=== PATIENT | female | born 1975 | race Caucasian/White ===

== ENCOUNTER → 2022-09-08 | Outpatient (CLI) | payer BC ==
[2022-09-08 13:06] LABS: BASOPHILS # (AUTO) 0.1 10^3/uL (0.0-0.1); BASOPHILS % (AUTO) 1 % (0-10); EOSINOPHILS # (AUTO) 0.1 10^3/uL (0.0-0.3); EOSINOPHILS % (AUTO) 3 % (0-10); HEMATOCRIT 38 % (35-52); LYMPHOCYTES # (AUTO) 1.2 10^3/uL (1.0-4.0); LYMPHOCYTES % (AUTO) 29 % (12-44); MEAN CORPUSCULAR HEMOGLOBIN 32 pg (25-34); MEAN CORPUSCULAR HGB CONC 34 g/dL (32-36); MEAN CORPUSCULAR VOLUME 93 fL (80-99); MEAN PLATELET VOLUME 10.5 fL (9.0-12.2); MONOCYTES # (AUTO) 0.3 10^3/uL (0.0-1.0); MONOCYTES % (AUTO) 8 % (0-12); NEUTROPHILS # (AUTO) 2.4 10^3/uL (1.8-7.8); NEUTROPHILS % (AUTO) 59 % (42-75); PLATELET COUNT 215 10^3/uL (130-400); WHITE BLOOD COUNT 4.1 10^3/uL (4.3-11.0)
[2022-09-08 13:18] LABS: ALBUMIN 4.4 GM/DL (3.2-4.5); POTASSIUM 4.2 MMOL/L (3.6-5.0)
[2022-09-08 13:19] LABS: CALCIUM 9.4 MG/DL (8.5-10.1)
[2022-09-08 13:24] LABS: CREATININE SERUM 1.01 MG/DL (0.60-1.30)
[2022-09-08 13:28] LABS: URINE CREATININE FOR RATIO 99 MG/DL (30-125)
[2022-09-08 13:29] LABS: URINE PROTEIN FOR RATIO ONLY < 6 MG/DL (6-12)
[2022-09-08 13:49] LABS: FREE T4 (FREE THYROXINE) 1.02 NG/DL (0.70-1.48)
== END ==
LOC: LAB 12:46
PROVIDERS: ATTEND Nurse Practitioner Family
DX: Z13.220 Encounter for screening for lipoid disorders (principal); D50.9 Iron deficiency anemia, unspecified; N18.30 Chronic kidney disease, stage 3 unspecified
CPT/HCPCS: 36415; 80061; 80069; 82570; 82607; 82728; 82746; 83540; 83550; 83735; 84156; 84439; 84443; 85025; 86663; 86664; 86665

== ENCOUNTER → 2022-10-30 | Outpatient (CLI) | payer BC ==
[2022-10-30 10:45] LABS: BASOPHILS # (AUTO) 0.1 10^3/uL (0.0-0.1); BASOPHILS % (AUTO) 1 % (0-10); EOSINOPHILS # (AUTO) 0.3 10^3/uL (0.0-0.3); EOSINOPHILS % (AUTO) 4 % (0-10); HEMATOCRIT 40 % (35-52); HEMOGLOBIN 13.5 g/dL (11.5-16.0); LYMPHOCYTES # (AUTO) 1.8 10^3/uL (1.0-4.0); LYMPHOCYTES % (AUTO) 22 % (12-44); MEAN CORPUSCULAR HEMOGLOBIN 32 pg (25-34); MEAN CORPUSCULAR HGB CONC 33 g/dL (32-36); MEAN CORPUSCULAR VOLUME 95 fL (80-99); MEAN PLATELET VOLUME 10.5 fL (9.0-12.2); MONOCYTES # (AUTO) 0.5 10^3/uL (0.0-1.0); MONOCYTES % (AUTO) 6 % (0-12); NEUTROPHILS # (AUTO) 5.3 10^3/uL (1.8-7.8); NEUTROPHILS % (AUTO) 67 % (42-75); PLATELET COUNT 261 10^3/uL (130-400); WHITE BLOOD COUNT 7.9 10^3/uL (4.3-11.0)
[2022-10-30 10:49] LABS: BILIRUBIN,URINE NEGATIVE (NEGATIVE); CLARITY,URINE CLEAR; COLOR,URINE YELLOW; GLUCOSE, URINE (UA) NEGATIVE (NEGATIVE); KETONES,URINE NEGATIVE (NEGATIVE); LEUKOCYTE ESTERASE ,URINE NEGATIVE (NEGATIVE); NITRITE,URINE NEGATIVE (NEGATIVE); PH,URINE 5.5 (5-9); PROTEIN,URINE NEGATIVE (NEGATIVE)
[2022-10-30 10:58] LABS: BACTERIA,URINE NEGATIVE /HPF; WBC,URINE RARE /HPF
[2022-10-30 11:08] LABS: URINE CREATININE FOR RATIO 36 MG/DL (30-125)
[2022-10-30 11:09] LABS: URINE PROTEIN FOR RATIO ONLY < 6 MG/DL (6-12)
[2022-10-30 11:13] LABS: ALBUMIN 4.4 GM/DL (3.2-4.5); CALCIUM 9.6 MG/DL (8.5-10.1); CREATININE SERUM 1.14 MG/DL (0.60-1.30); PHOSPHORUS 3.4 MG/DL (2.3-4.7); POTASSIUM 3.2 MMOL/L (3.6-5.0)
== END ==
LOC: LAB 10:08
PROVIDERS: ATTEND Internal Medicine Nephrology
DX: N18.31 Chronic kidney disease, stage 3a (principal); T39.395A Adverse effect of other nonsteroidal anti-inflammatory drugs [NSAID], initial encounter; R80.9 Proteinuria, unspecified; E67.3 Hypervitaminosis D
CPT/HCPCS: 36415; 80069; 81000; 82306; 82570; 83735; 84156; 85025

== ENCOUNTER 2022-11-12 14:55 | Emergency (ER) | payer BC ==
[~2022-11-12] VITALS: Ht 165.1 cm; Wt 68.0 kg
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
[2022-11-12] MEDS ORDERED: ALPRAZolam 0.25 MG (XANAX) TAB PO ONE (16:00)
[2022-11-12 17:21] LABS: AMPHETAMINE SCREEN, URINE NEGATIVE (NEGATIVE); BARBITURATE SCREEN URINE NEGATIVE (NEGATIVE); BENZODIAZEPINES SCREEN URINE NEGATIVE (NEGATIVE); CANNABINOID SCREEN, URINE NEGATIVE (NEGATIVE); COCAINE SCREEN URINE NEGATIVE (NEGATIVE); METHADONE STAT NEGATIVE (NEGATIVE); OPIATE SCREEN URINE NEGATIVE (NEGATIVE); OXYCODONE STAT NEGATIVE (NEGATIVE); PROPOXYPHENE STAT NEGATIVE (NEGATIVE); TRICYCLIC ANTIDEPRESSANTS SCRE NEGATIVE (NEGATIVE)
[2022-11-12 17:48] LABS: BUN/CREATININE RATIO 17; CALCIUM 9.9 MG/DL (8.5-10.1); CARBON DIOXIDE 23 MMOL/L (21-32); CHLORIDE 107 MMOL/L (98-107); CREATININE SERUM 0.96 MG/DL (0.60-1.30); GFR ESTIMATED 74; GLUCOSE 88 MG/DL (70-105); POTASSIUM 4.1 MMOL/L (3.6-5.0); SODIUM 141 MMOL/L (135-145)
[2022-11-12 18:29] VITALS: BP 138/76
== END 2022-11-12 18:32 | disposition home or self-care (01) ==
LOC: EDUNIT# 14:55 → ER 14:56
DX: F41.9 Anxiety disorder, unspecified (principal)
CPT/HCPCS: 80048; 80306; 83735; 84703; 99283; G0480; 36415; 80320

== ENCOUNTER 2022-12-30 01:58 | Emergency (ER) | payer BC ==
[2022-12-30 02:12] LABS: BASOPHILS # (AUTO) 0.1 10^3/uL (0.0-0.1); BASOPHILS % (AUTO) 1 % (0-10); EOSINOPHILS # (AUTO) 0.1 10^3/uL (0.0-0.3); EOSINOPHILS % (AUTO) 1 % (0-10); HEMATOCRIT 36 % (35-52); HEMOGLOBIN 12.2 g/dL (11.5-16.0); LYMPHOCYTES # (AUTO) 2.4 10^3/uL (1.0-4.0); LYMPHOCYTES % (AUTO) 22 % (12-44); MEAN CORPUSCULAR HEMOGLOBIN 32 pg (25-34); MEAN CORPUSCULAR HGB CONC 34 g/dL (32-36); MEAN CORPUSCULAR VOLUME 94 fL (80-99); MEAN PLATELET VOLUME 10.3 fL (9.0-12.2); MONOCYTES # (AUTO) 0.8 10^3/uL (0.0-1.0); MONOCYTES % (AUTO) 7 % (0-12); NEUTROPHILS # (AUTO) 7.3 10^3/uL (1.8-7.8); NEUTROPHILS % (AUTO) 69 % (42-75); PLATELET COUNT 257 10^3/uL (130-400); WHITE BLOOD COUNT 10.7 10^3/uL (4.3-11.0)
[2022-12-30] MEDS ORDERED: ASPIRIN 81 MG CHEW (CHILDREN'S ASA) PO ONE (02:15)
[2022-12-30] MEDS ORDERED: NITROGLYCERIN 0.4 MG SL TABS BTL 25'S SL PRN (02:15)
--- NOTE | 2022-12-30 02:26 | ED Chest Pain ---
General Chief Complaint: Chest Pain Stated Complaint: CHEST/UPPER BACK/LEFT SHOULDER PAIN/SOA Source: patient History of Present Illness Date Seen by Provider: Dec 30, 2022 Time Seen by Provider: 02:05 Initial Comments PT ARRIVES VIA POV --DROVE HERE FROM WORK PT C/O CHEST PAIN SINCE 1900 TONIGHT PAIN IS IN CENTER OF CHEST AND IS ALSO IN HER UPPER BACK AND IN HER LEFT SHOULDER PAIN COMES AND GOES, NOTHING WORSENS OR IMPROVES PAIN RATES PAIN 4/10 NOW HAS SOME SHORTNESS OF BREATH WITH PAIN NO SWEATS NO DIZZINESS NO SYNCOPE NO PALPITATIONS NO SWELLING IN LEGS/FEET OR PAIN IN CALVES NO NAUSEA/VOMITING PT WORKED HER WHOLE SHIFT, GOT OFF WORK AT 0145 AND DROVE HERE SHE STATES SHE WAS NOT DOING ANYTHING STRENUOUS--PUTTING RIVETS IN DOORS SHE HAD 2 CANS OF POP TODAY, WHICH IS NORMAL FOR HER SHE STATES SHE WAS SEEN AT [place] A FEW WEEKS AGO, FOR COMPLAINTS OF SOME ONGOING DIZZINESS AND WAS HAVING A VARYING HEART BEAT--FROM 50-132, AND SOME MILD CHEST PAIN OFF AND ON SHE WORE AN EVENT MONITOR FOR 2 WEEKS, AND THERE WERE NO SIGNIFICANT ARRHYTHMIAS IDENTIFIED, ACCORDING TO THE REPORT THAT PT BRINGS UP ON HER PHONE. SHE HAS AN APPOINTMENT WITH HAND TRUCKER, DR. BOUDREAUX THIS Thursday01/19/23, WELL A CT SCAN OF HER CHEST FOR "A SHADOW BEHIND MY HEART" SHE IS NOT ON ASPIRIN ANY CARDIAC MEDICATIONS. NO FEVER OR RECENT ILLNESS NO COUGH OR URI SYMPTOMS LMP--HYSTERECTOMY PT IS NOT COVID OR FLU VACCINATED. SHE STATES HER ONLY MEDICATIONS ARE FOR MENTAL HEALTH. PCP: DR. PHAM, [facility] Allergies and Home Medications Allergies Coded Allergies: Sulfa (Sulfonamide Antibiotics) (Verified Allergy, Unknown, 11/12/22) clindamycin (Verified Allergy, Unknown, 11/12/22) Patient Home Medication List Home Medication List Reviewed: Yes Ketorolac Tromethamine (Ketorolac Tromethamine) 10 Mg Tablet, 10 MG PO Q6H Prescribed by: GA LAUREN on 12/30/22 2065 Review of Systems Review of Systems Constitutional: no symptoms reported EENTM: No Symptoms Reported Respiratory: See HPI, Shortness of Air Cardiovascular: See HPI, Chest Pain; Denies Edema, Denies Irregular Heart Rate, Denies Lightheadedness, Denies Palpitations, Denies Syncope Gastrointestinal: No Symptoms Reported; Denies Abdominal Pain, Denies Nausea, Denies Vomiting Genitourinary: No Symptoms Reported Musculoskeletal: see HPI, back pain Skin: no symptoms reported Psychiatric/Neurological: No Symptoms Reported Endocrine: No Symptoms Reported Hematologic/Lymphatic: No Symptoms Reported Past Zirvgwa-Kwmwom-Vugarz Hx Patient Social History Tobacco Use?: No Substance use?: No Alcohol Use?: No Immunizations Up To Date Influenza Vaccine Up-to-Date: No; Not Current Past Medical History Surgery/Hospitalization HX: HYST, GB Surgeries: Yes Gallbladder, Hysterectomy, Oophorectomy, Orthopedic Respiratory: No Cardiac: Yes Palpitations Neurological: No : No Reproductive Disorders: Yes Female Reproductive Disorders: Menstrual Problems RN SPINE History: Hysterectomy Genitourinary: No Gastrointestinal: No Musculoskeletal: Yes (MULTIPLE ORTHOPEDIC SURGERIES) Endocrine: No HEENT: No Cancer: No Psychosocial: Yes Anxiety, Depression Integumentary: No Blood Disorders: No Family Medical History SOCIAL HISTORY: -DENIES SMOKING OR VAPING -DENIES ETOH USE -DENIES DRUG USE PAST SURGICAL HISTORY: -HYSTERECTOMY WITH LEFT SALPINGO-OOPHORECTOMY 2010 -CHOLECYSTECTOMY -SINUS SURGERY -RIGHT KNEE ARTHROSCOPY -D&C -RIGHT SHOULDER SURGERY X 2 -LEFT SHOULER SURGERY X 1 Physical Exam Vital Signs Vital Signs - First Documented 12/30/22 02:00 Temp 36.5 Pulse 71 Resp 16 B/P (MAP) 118/68 (85) Pulse Ox 98 O2 Delivery Room Air Capillary Refill : Less Than 3 Seconds Height, Weight, BMI Height: '" Weight: lbs. oz. kg; 24.00 BMI Method: General Appearance: No Apparent Distress, WD/WN, Other (DOES NOT APPEAR ILL OR TO BE IN ANY DISCOMFORT OR DISTRESS) HEENT: PERRL/EOMI, Other (POOR DENTITION) Neck: Full Range of Motion, Normal Inspection, Non Tender, Supple Respiratory: Normal Breath Sounds, No Accessory Muscle Use, No Respiratory Distress, Other (MILD MID STERNAL TENDERNESS) Cardiovascular: Regular Rate, Rhythm, No Edema, No JVD, No Murmur, Normal Peripheral Pulses Gastrointestinal: Normal Bowel Sounds, No Organomegaly, No Pulsatile Mass, Non Tender, Soft Extremity: Normal Capillary Refill, Normal Inspection, Normal Range of Motion, Non Tender, No Calf Tenderness, No Pedal Edema Neurologic/Psychiatric: Alert, Oriented x3, No Motor/Sensory Deficits, Normal Mood/Affect, 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 Skin: Normal Color, Warm/Dry, Tattoos/Piercings Progress/Results/Core Measures Results/Orders Lab Results Laboratory Tests Test 12/30/22 02:05 Range/Units White Blood Count 10.7 4.3-11.0 10^3/uL Red Blood Count 3.82 3.80-5.11 10^6/uL Hemoglobin 12.2 11.5-16.0 g/dL Hematocrit 36 35-52 % Mean Corpuscular Volume 94 80-99 fL Mean Corpuscular Hemoglobin 32 25-34 pg Mean Corpuscular Hemoglobin Concent 34 32-36 g/dL Red Cell Distribution Width 11.8 10.0-14.5 % Platelet Count 257 130-400 10^3/uL Mean Platelet Volume 10.3 9.0-12.2 fL Immature Granulocyte % (Auto) 0 % Neutrophils (%) (Auto) 69 42-75 % Lymphocytes (%) (Auto) 22 12-44 % Monocytes (%) (Auto) 7 0-12 % Eosinophils (%) (Auto) 1 0-10 % Basophils (%) (Auto) 1 0-10 % Neutrophils # (Auto) 7.3 1.8-7.8 10^3/uL Lymphocytes # (Auto) 2.4 1.0-4.0 10^3/uL Monocytes # (Auto) 0.8 0.0-1.0 10^3/uL Eosinophils # (Auto) 0.1 0.0-0.3 10^3/uL Basophils # (Auto) 0.1 0.0-0.1 10^3/uL Immature Granulocyte # (Auto) 0.0 0.0-0.1 10^3/uL Prothrombin Time 13.8 12.2-14.7 SEC INR Comment 1.0 0.8-1.4 Activated Partial Thromboplast Time 29 24-35 SEC D-Dimer < 0.27 0.00-0.49 UG/ML Sodium Level 140 135-145 MMOL/L Potassium Level 3.3 L 3.6-5.0 MMOL/L Chloride Level 106 98-107 MMOL/L Carbon Dioxide Level 22 21-32 MMOL/L Anion Gap 12 5-14 MMOL/L Blood Urea Nitrogen 18 7-18 MG/DL Creatinine 1.11 0.60-1.30 MG/DL Estimat Glomerular Filtration Rate 62 BUN/Creatinine Ratio 16 Glucose Level 91 70-105 MG/DL Calcium Level 9.1 8.5-10.1 MG/DL Corrected Calcium 8.7 8.5-10.1 MG/DL Magnesium Level 2.2 1.6-2.4 MG/DL Total Bilirubin 0.2 0.1-1.0 MG/DL Aspartate Amino Transf (AST/SGOT) 16 5-34 U/L Alanine Aminotransferase (ALT/SGPT) 14 0-55 U/L Alkaline Phosphatase 50 40-136 U/L Total Creatine Kinase 116 29-168 U/L Creatine Kinase MB 1.6 <6.6 NG/ML Myoglobin 88.8 10.0-92.0 NG/ML Troponin I < 0.028 <0.028 NG/ML B-Type Natriuretic Peptide < 10.0 <100.0 PG/ML Total Protein 7.7 6.4-8.2 GM/DL Albumin 4.5 3.2-4.5 GM/DL Amylase Level 56 25-125 U/L Lipase 30 8-78 U/L Serum Test, Qualitative NEGATIVE NEGATIVE My Orders Orders - GA LAUREN DO Cbc With Automated Diff (12/30/22 02:04) Magnesium (12/30/22 02:04) Chest 1 View, Ap/Pa Only (12/30/22 02:04) Ekg Tracing (12/30/22 02:04) Comprehensive Metabolic Panel (12/30/22 02:04) Myoglobin Serum (12/30/22 02:04) Protime With Inr (12/30/22 02:04) Partial Thromboplastin Time (12/30/22 02:04) O2 (12/30/22 02:04) Monitor-Rhythm Ecg Trace Only (12/30/22 02:04) Ed Iv/Invasive Line Start (12/30/22 02:04) Creatine Kinase (12/30/22 02:04) Creatine Kinase Mb (12/30/22 02:04) Lipase (12/30/22 02:04) Amylase (12/30/22 02:04) Bnp Emmet (12/30/22 02:04) Fibrin Degradation Products (12/30/22 02:04) Troponin I Emmet (12/30/22 02:04) Nitroglycerin 0.4 Mg Btl 25's (Nitrostat (12/30/22 02:15) Aspirin Chewable Tablet (Baby Aspirin Ch (12/30/22 02:15) Hcg,Qualitative Serum (12/30/22 02:04) Ketorolac Injection (Toradol Injection) (12/30/22 03:15) Drug Screen Stat (Urine) (12/30/22 03:05) Ua Culture If Indicated (12/30/22 03:05) Ct Graciela Chest/Noang Abd-Pelv W (12/30/22 03:06) Iohexol Injection (Omnipaque 350 Mg/Ml 1 (12/30/22 04:30) Sodium Chloride Flush (Catheter Flush Sy (12/30/22 04:30) Ns (Ivpb) (Sodium Chloride 0.9% Ivpb Bag (12/30/22 04:30) Medications Given in ED Current Medications Medications Dose Ordered Sig/Shira Route Start Time Stop Time Status Last Admin Dose Admin Aspirin 324 mg ONCE ONCE PO 12/30/22 02:15 12/30/22 02:16 DC 12/30/22 02:10 324 MG Iohexol 100 ml ONCE ONCE IV 12/30/22 04:30 12/30/22 04:31 DC 12/30/22 04:27 75 ML Ketorolac Tromethamine 30 mg ONCE ONCE IVP 12/30/22 03:15 12/30/22 03:17 DC 12/30/22 03:08 30 MG Sodium Chloride 10 ml NEEDED PRN IV 12/30/22 04:30 12/30/22 04:43 DC 12/30/22 04:27 10 ML Sodium Chloride 100 ml ONCE ONCE IV 12/30/22 04:30 12/30/22 04:31 DC 12/30/22 04:27 80 ML Vital Signs/I&O 12/30/22 12/30/22 12/30/22 02:00 02:00 04:36 Temp 36.5 36.5 Pulse 71 59 Resp 16 16 B/P (MAP) 118/68 (85) 123/76 Pulse Ox 98 100 O2 Delivery Room Air Room Air Room Air Progress Progress Note : Progress Note GIVEN: -ASPIRIN NTG HELD AT THIS TIME, DUE TO PAIN IMPROVING LATER GAVE TORADOL WITH IMPROVEMENT IN PAIN NO ARRHTHMIAS OR ABNORMAL VITALS AT ANY TIME PT STATES PRIOR TO DISMISSAL THAT SHE HAD BEEN ON OMEPRAZOLE OTC BUT SWITCHED TO PEPCID OTC. REVIEWED PREVIOUS RECORDS--ONLY VISIT HERE WAS AN ER VISIT ON 11/12/2022 FOR A PANIC ATTACK. REVIEWED ALL TEST RESULTS, ANTICIPATED COURSE, MEDICATIONS, NEED TO KEEP SCHEDULED APPOINTMENT WITH HER HAND TRUCKER, AND RETURN PRECAUTIONS. Initial ECG Impression Date: Dec 30, 2022 Initial ECG Impression Time: 02:08 Initial ECG Rate: 69 Initial ECG Rhythm: Normal Sinus Initial ECG Comparisson: No Previous ECG Available Comment INTERPRETED BY ME Diagnostic Imaging Comments CXR--NO ACUTE PROCESS, PENDING RADIOLOGIST REVIEW CT CHEST ANGIOGRAM / ABDOMEN-PELVIS--PER [facility] VIA FAX AT [phone] -NO P.E. -NO ANEURYSM OR DISSECTION -SMALL PERICARDIAL CYST ADJACENT TO RIGHT HEART BORDER 3.7 X 2.6 CM WITHOUT SURROUNDING INFLAMMATION. Reviewed: Reviewed by Me Departure Impression Primary Impression: Chest pain Additional Impression: Pericardial cyst Disposition: HOME, SELF-CARE Condition: Stable Departure-Patient Inst. Decision time for Depature: 04:30 Referrals: NO,LOCAL PHYSICIAN (PCP) Primary Care Physician WILLOW SANCHEZ APRN (Family) Primary Care Physician Patient Instructions: Chest Pain (DC) Add. Discharge Instructions: TAKE 81 MG ASPIRIN DAILY TAKE 40 MG PEPCID DAILY CONTINUE YOUR REGULAR MEDICATIONS PRESCRIBED FOLLOW UP WITH DR. BOUDREAUX ON THURSDAY SCHEDULED. RETURN TO ER IF SYMPTOMS WORSEN All discharge instructions reviewed with patient and/or family. Voiced understanding. Scripts Ketorolac Tromethamine (Ketorolac Tromethamine) 10 Mg Tablet 10 MG PO Q6H for Pain, #15 TAB Prov: GA LAUREN DO 12/30/22 GA LAUREN DO Dec 30, 2022 02:26
[2022-12-30 02:29] LABS: ALBUMIN 4.5 GM/DL (3.2-4.5)
[2022-12-30 02:30] LABS: POTASSIUM 3.3 MMOL/L (3.6-5.0)
[2022-12-30 02:31] LABS: CALCIUM 9.1 MG/DL (8.5-10.1)
[2022-12-30 02:32] LABS: TOTAL PROTEIN 7.7 GM/DL (6.4-8.2)
[2022-12-30 02:34] LABS: BILIRUBIN,TOTAL 0.2 MG/DL (0.1-1.0)
[2022-12-30 02:35] LABS: PROTHROMBIN TIME PATIENT 13.8 SEC (12.2-14.7)
[2022-12-30 02:36] LABS: CREATININE SERUM 1.11 MG/DL (0.60-1.30)
[2022-12-30 02:38] LABS: MAGNESIUM 2.2 MG/DL (1.6-2.4)
[2022-12-30 02:48] LABS: CREATINE KINASE MB 1.6 NG/ML (<6.6)
[2022-12-30] MEDS ORDERED: KETOROLAC 30 MG/ML VIAL IVP ONE (03:15)
[2022-12-30] MEDS ORDERED: CATHETER FLUSH 10 ML SYR IV PRN (04:30)
[2022-12-30] MEDS ORDERED: IOHEXOL 350 MG/ML 100 ML (OMNIPAQUE 350) VIAL IV ONE (04:30)
[2022-12-30] MEDS ORDERED: NS 100 ML (IVPB) BAG IV ONE (04:30)
[2022-12-30] MEDS ORDERED: KETO10TA PO (04:35)
[2022-12-30 04:36] VITALS: BP 123/76
--- NOTE | 2022-12-30 07:09 | Diagnostic Imaging Report ---
Exam: CT angiography chest, abdomen, and pelvis with intravenous contrast. Date: December 30, 2022. Indication: 47-year-old female, chest and abdominal pain. Comparison: Chest radiographs December 22, 2022. Technique: Axial CT images of the chest, abdomen, and pelvis were obtained with intravenous contrast. Coronal and sagittal as well as 3-dimensional reformats were obtained and provided. All CT scans use one or more of the following dose optimizing techniques: automated exposure control, MA and/or KvP adjustment based on patient size and exam type or iterative reconstruction. . Findings: There are dependent linear opacities in the right lower lobe most compatible with atelectasis. There is also dependent atelectasis in the left lower lobe. There is no additional focal airspace consolidation. There is no pneumothorax. There is no pleural effusion. The central airways are patent. There is no identified pulmonary nodule or lung mass. There is no identified pulmonary embolus. The main pulmonary artery diameter is within normal limits. The heart is not enlarged. There is no pericardial effusion. The thoracic aorta is normal in caliber. There is no identified aortic dissection. The celiac axis and superior mesenteric artery are widely patent. The bilateral renal arteries are widely patent. The abdominal aorta is normal in caliber. There is no identified abnormally enlarged mediastinal, hilar, or axillary lymph node which meets CT size criteria for adenopathy. There is a low-attenuation elongated mass along the right heart border measuring 7.2 x 2.2 cm in size with internal attenuation of -9 Hounsfield units. This most likely relates to a pericardial cyst. The liver is unremarkable in size and contour. There is no identified liver lesion. The main, right, left portal veins are grossly patent. The gallbladder surgically absent. There is no identified intrahepatic or extrahepatic bile duct dilation. The main pancreatic duct is not abnormally dilated. Unremarkable appearance of the pancreatic parenchyma. The spleen is normal in size. There is an accessory splenule on axial image 43. The adrenal glands are unremarkable. There is a low-attenuation left renal lesion on axial image 45 which measures 11 mm in size. Internal attenuation is measured at 10 Hounsfield units consistent with a benign cyst. There are areas of right renal cortical scarring. The urinary collecting systems are not distended. There is no identified renal or ureteral stone. Urinary bladder is unremarkable. The intestinal tract is not distended. The appendix is best seen on axial image 108 and adjacent sequential images. There is no evidence of acute appendicitis. There is no free intraperitoneal air. There is no drainable fluid collection. There is no sizable volume free fluid in the abdomen or pelvis. There are very mild atherosclerotic calcifications noted. There is no identified abnormally enlarged lymph node in the abdomen or pelvis which meets CT size criteria for adenopathy. There is severe disc height loss at L5-S1. There is no identified acute bony abnormality. Impression: 1. No identified acute cardiopulmonary abnormality. 2. No identified acute abnormality in the abdomen or pelvis. 3. Pericardial cyst as measured above. Agree with the provided preliminary report. Dictated by: Dictated on workstation # [id number]
--- NOTE | 2022-12-30 07:11 | Diagnostic Imaging Report ---
EXAMINATION: Chest radiograph, portable AP view. DATE: 12/30/2022 2:37 AM INDICATION: 47-year-old female, chest pain. COMPARISON: None. FINDINGS: Heart size and mediastinal contours are unremarkable. There is no identified pneumothorax. There is no large pleural effusion. There is no identified focal airspace consolidation. IMPRESSION: 1. No identified acute cardiopulmonary abnormality. Dictated by: Dictated on workstation # [id number]
== END 2022-12-30 04:43 | disposition home or self-care (01) ==
LOC: EDUNIT# 01:58 → ER 02:00
DX: R07.9 Chest pain, unspecified (principal); Q24.8 Other specified congenital malformations of heart; F41.9 Anxiety disorder, unspecified; F32.A Depression, unspecified; Z28.310 Unvaccinated for COVID-19; Z28.9 Immunization not carried out for unspecified reason; Z28.39 Other underimmunization status; Z88.1 Allergy status to other antibiotic agents; Z88.2 Allergy status to sulfonamides
CPT/HCPCS: 36415; 71045; 71275; 74177; 80053; 82150; 82550; 82553; 83690; 83735; 83874; 83880; 84484; 84703; 85025; 85379; 85610; 85730; 93005; 93041

== ENCOUNTER 2023-02-16 22:08 | Emergency (ER) | payer BC ==
[~2023-02-16] VITALS: Ht 165 cm; Wt 64.0 kg
[~2023-02-16 22:08] MED LIST: KETO10TA PO
[2023-02-16 22:23] VITALS: BP 110/73
[2023-02-16 23:04] LABS: BILIRUBIN,URINE NEGATIVE (NEGATIVE); CLARITY,URINE CLEAR; COLOR,URINE YELLOW; GLUCOSE, URINE (UA) NEGATIVE (NEGATIVE); KETONES,URINE NEGATIVE (NEGATIVE); LEUKOCYTE ESTERASE ,URINE TRACE (NEGATIVE); NITRITE,URINE NEGATIVE (NEGATIVE); PROTEIN,URINE NEGATIVE (NEGATIVE)
[2023-02-16 23:11] LABS: BACTERIA,URINE NEGATIVE /HPF; RBC,URINE RARE /HPF
[2023-02-16] MEDS ORDERED: LACTATED RINGERS 1,000 ML IV ONE (23:45)
[2023-02-16] MEDS ORDERED: ONDANSETRON 4 MG/2 ML (SDV) Z0FRAN IVP ONE (23:45)
[2023-02-16] MEDS ORDERED: fentaNYL INJ 100 MCG/2 ML AMP IVP ONE (23:45)
[2023-02-16 23:57] LABS: BASOPHILS % (AUTO) 1 % (0-10); EOSINOPHILS # (AUTO) 0.1 10^3/uL (0.0-0.3); EOSINOPHILS % (AUTO) 2 % (0-10); HEMATOCRIT 32 % (35-52); HEMOGLOBIN 10.9 g/dL (11.5-16.0); LYMPHOCYTES # (AUTO) 1.6 10^3/uL (1.0-4.0); LYMPHOCYTES % (AUTO) 25 % (12-44); MEAN CORPUSCULAR HEMOGLOBIN 32 pg (25-34); MEAN CORPUSCULAR HGB CONC 34 g/dL (32-36); MEAN CORPUSCULAR VOLUME 94 fL (80-99); MEAN PLATELET VOLUME 10.8 fL (9.0-12.2); MONOCYTES # (AUTO) 0.5 10^3/uL (0.0-1.0); MONOCYTES % (AUTO) 8 % (0-12); NEUTROPHILS # (AUTO) 4.1 10^3/uL (1.8-7.8); NEUTROPHILS % (AUTO) 64 % (42-75); PLATELET COUNT 251 10^3/uL (130-400); WHITE BLOOD COUNT 6.3 10^3/uL (4.3-11.0)
[2023-02-16 23:58] LABS: ALBUMIN 4.2 GM/DL (3.2-4.5); POTASSIUM 3.6 MMOL/L (3.6-5.0)
[2023-02-17] LABS: CALCIUM 9.1 MG/DL (8.5-10.1)
[2023-02-17 00:01] LABS: TOTAL PROTEIN 6.9 GM/DL (6.4-8.2)
[2023-02-17 00:02] LABS: BILIRUBIN,TOTAL 0.3 MG/DL (0.1-1.0)
[2023-02-17] MEDS ORDERED: HOLD METFORMIN - RECEIVED CONTRAST 20 ML VIAL IV SCH (00:45)
[2023-02-17] MEDS ORDERED: IOHEXOL 350 MG/ML 100 ML (OMNIPAQUE 350) VIAL IV ONE (00:45)
[2023-02-17] MEDS ORDERED: NS 100 ML (IVPB) BAG IV ONE (00:45)
[2023-02-17] MEDS ORDERED: ANTACID SUSP 30 ML UDC (MYLANTA) PO ONE (01:00)
[2023-02-17] MEDS ORDERED: LIDOCAINE 2% VISCOUS 15 ML UDC PO ONE (01:00)
[2023-02-17] MEDS ORDERED: fentaNYL INJ 100 MCG/2 ML AMP IVP ONE (03:30)
[2023-02-17] MEDS ORDERED: ONDANSETRON 4 MG/2 ML (SDV) Z0FRAN IVP ONE (03:30)
[2023-02-17] MEDS ORDERED: ONDA4TAB11 SL (03:31)
[2023-02-17] MEDS ORDERED: SUCR1TAB36 PO (03:31)
--- NOTE | 2023-02-17 03:31 | ED Abdominal Pain ---
General Chief Complaint: Abdominal/GI Problems Stated Complaint: NAUSEA, ABDOMINAL PAIN Nursing Triage Note: Pt presents with c/o R side abdominal pain. Pt states she was constipated and had urinary retention earlier this morning. She went to a mamogram appointment and was able to have a small BM and urinate after the appointment. Pt has been at work and has had increasing pain, pt moves and bends over a lot and reports increasing sharp pain with movement. Source of Information: Patient Exam Limitations: No Limitations History of Present Illness Date Seen by Provider: Feb 16, 2023 Time Seen by Provider: 22:52 Initial Comments This 47 year old woman presents to the ER with primary complaint of right abdominal pain that started as a feeling of constipation this morning. She had some difficulty urinating this morning but that has improved. Started Protonix yesterday by Dr. Clemons on a telemedicine visit. Has taken 2 doses yesterday. Pain radiates to the LUQ. She has nausea without vomiting. No urinary changes. Ibuprofen and toradol have not been helpful treatments. Her primary care provider is Karen nettles [place]. Allergies and Home Medications Allergies Coded Allergies: Sulfa (Sulfonamide Antibiotics) (Verified Allergy, Unknown, 11/12/22) clindamycin (Verified Allergy, Unknown, 11/12/22) Patient Home Medication List Home Medication List Reviewed: Yes Ketorolac Tromethamine (Ketorolac Tromethamine) 10 Mg Tablet, 10 MG PO Q6H Prescribed by: GA LAUREN on 12/30/22 0435 Ondansetron (Ondansetron Odt) 4 Mg Tab.rapdis, 4 MG SL Q4H PRN for NA USEA/VOMITING Prescribed by: MARIOLA MORALES on 02/17/23 0331 Sucralfate (Carafate) 1 Gram Tablet, 1 GM PO QID Prescribed by: MARIOLA MORALES on 02/17/23 0331 Review of Systems Review of Systems Constitutional: no symptoms reported EENTM: No Symptoms Reported Respiratory: No Symptoms Reported Cardiovascular: No Symptoms Reported Gastrointestinal: See HPI Genitourinary: No Symptoms Reported Musculoskeletal: no symptoms reported Skin: no symptoms reported Psychiatric/Neurological: No Symptoms Reported Endocrine: No Symptoms Reported Past Lymonms-Jiauhd-Whfpdb Hx Patient Social History Tobacco Use?: No Use of E-Cig and/or Vaping dev: No Substance use?: No Alcohol Use?: No Pt feels they are or have been: No Immunizations Up To Date Influenza Vaccine Up-to-Date: No; Not Current Past Medical History Surgery/Hospitalization HX: HYST, GB Surgeries: Yes (sinus surgery) Abdominal (D&C), Gallbladder, Hysterectomy, Oophorectomy, Orthopedic (knee and shoulder) Respiratory: No Cardiac: Yes Palpitations Neurological: No Reproductive Disorders: Yes Female Reproductive Disorders: Menstrual Problems [employer] History: Hysterectomy Genitourinary: Yes Renal Failure (CKD) Gastrointestinal: Yes Gastroesophageal Reflux Musculoskeletal: Yes (MULTIPLE ORTHOPEDIC SURGERIES) Endocrine: No HEENT: No Cancer: No Psychosocial: Yes Anxiety, Depression Integumentary: No Blood Disorders: No Family Medical History SOCIAL HISTORY: -DENIES SMOKING OR VAPING -DENIES ETOH USE -DENIES DRUG USE PAST SURGICAL HISTORY: -HYSTERECTOMY WITH LEFT SALPINGO-OOPHORECTOMY 2010 -CHOLECYSTECTOMY -SINUS SURGERY -RIGHT KNEE ARTHROSCOPY -D&C -RIGHT SHOULDER SURGERY X 2 -LEFT SHOULER SURGERY X 1 Physical Exam Vital Signs Vital Signs - First Documented 02/16/23 22:23 Temp 36.4 Pulse 67 Resp 16 B/P (MAP) 110/73 (85) Capillary Refill : Less Than 3 Seconds Height/Weight/BMI Height: '" Weight: lbs. oz. kg; 23.00 BMI Method: General Appearance: WD/WN, no apparent distress HEENT: normal ENT inspection Neck: normal inspection Respiratory: chest non-tender, lungs clear, normal breath sounds, no respiratory distress, no accessory muscle use Cardiovascular: regular rate, rhythm, no edema, no murmur, other (very prominant pulsating upper abdominal aorta) Gastrointestinal: normal bowel sounds, soft; No distended; tenderness, other (prominant upper abdominal aorta with bounding pulsation and localized tenderness in the epigastrium) Extremities: normal inspection, no pedal edema Neurologic/Psychiatric: no motor/sensory deficits, alert, normal mood/affect, oriented x 3 Skin: normal color, warm/dry Progress/Results/Core Measures Results/Orders Lab Results Laboratory Tests Test 02/16/23 22:50 02/16/23 22:55 Range/Units White Blood Count 6.3 4.3-11.0 10^3/uL Red Blood Count 3.41 L 3.80-5.11 10^6/uL Hemoglobin 10.9 L 11.5-16.0 g/dL Hematocrit 32 L 35-52 % Mean Corpuscular Volume 94 80-99 fL Mean Corpuscular Hemoglobin 32 25-34 pg Mean Corpuscular Hemoglobin Concent 34 32-36 g/dL Red Cell Distribution Width 11.8 10.0-14.5 % Platelet Count 251 130-400 10^3/uL Mean Platelet Volume 10.8 9.0-12.2 fL Immature Granulocyte % (Auto) 0 % Neutrophils (%) (Auto) 64 42-75 % Lymphocytes (%) (Auto) 25 12-44 % Monocytes (%) (Auto) 8 0-12 % Eosinophils (%) (Auto) 2 0-10 % Basophils (%) (Auto) 1 0-10 % Neutrophils # (Auto) 4.1 1.8-7.8 10^3/uL Lymphocytes # (Auto) 1.6 1.0-4.0 10^3/uL Monocytes # (Auto) 0.5 0.0-1.0 10^3/uL Eosinophils # (Auto) 0.1 0.0-0.3 10^3/uL Basophils # (Auto) 0.0 0.0-0.1 10^3/uL Immature Granulocyte # (Auto) 0.0 0.0-0.1 10^3/uL Sodium Level 140 135-145 MMOL/L Potassium Level 3.6 3.6-5.0 MMOL/L Chloride Level 105 98-107 MMOL/L Carbon Dioxide Level 23 21-32 MMOL/L Anion Gap 12 5-14 MMOL/L Blood Urea Nitrogen 14 7-18 MG/DL Creatinine 1.00 0.60-1.30 MG/DL Estimat Glomerular Filtration Rate 70 BUN/Creatinine Ratio 14 Glucose Level 92 70-105 MG/DL Calcium Level 9.1 8.5-10.1 MG/DL Corrected Calcium 8.9 8.5-10.1 MG/DL Total Bilirubin 0.3 0.1-1.0 MG/DL Aspartate Amino Transf (AST/SGOT) 16 5-34 U/L Alanine Aminotransferase (ALT/SGPT) 14 0-55 U/L Alkaline Phosphatase 46 40-136 U/L C-Reactive Protein High Sensitivity 0.12 0.00-0.50 MG/DL Total Protein 6.9 6.4-8.2 GM/DL Albumin 4.2 3.2-4.5 GM/DL Lipase 21 8-78 U/L Urine Color YELLOW Urine Clarity CLEAR Urine pH 6.0 5-9 Urine Specific [place] <=1.005 1.016-1.022 Urine Protein NEGATIVE NEGATIVE Urine Glucose (UA) NEGATIVE NEGATIVE Urine Ketones NEGATIVE NEGATIVE Urine Nitrite NEGATIVE NEGATIVE Urine Bilirubin NEGATIVE NEGATIVE Urine Urobilinogen 0.2 < = 1.0 MG/DL Urine Leukocyte Esterase TRACE H NEGATIVE Urine RBC (Auto) NEGATIVE NEGATIVE Urine RBC RARE /HPF Urine WBC 2-5 /HPF Urine Squamous Epithelial Cells 2-5 /HPF Urine Crystals NONE /LPF Urine Bacteria NEGATIVE /HPF Urine Casts NONE /LPF Urine Mucus NEGATIVE /LPF Urine Culture Indicated NO My Orders Orders - MARIOLA WHITTINGTON MD Ua Culture If Indicated (02/16/23 22:52) Bladder Scan (02/16/23 22:52) Cbc With Automated Diff (02/16/23 23:41) Comprehensive Metabolic Panel (02/16/23 23:41) Hs C Reactive Protein (02/16/23 23:41) Lipase (02/16/23 23:41) Ct Angio Abdomen/Pelv W (02/16/23 23:41) Fentanyl Inj (Sublimaze Injection) (02/16/23 23:45) Ondansetron Injection (Zofran Injectio (02/16/23 23:45) Ed Iv/Invasive Line Start (02/16/23 23:41) Lactated Ringers (Lr 1000 Ml Iv Solution (02/16/23 23:45) Iohexol Injection (Omnipaque 350 Mg/Ml 1 (02/17/23 00:45) Received Contrast (Hold Metformin- Contr (02/17/23 00:45) Ns (Ivpb) (Sodium Chloride 0.9% Ivpb Bag (02/17/23 00:45) Lidocaine 2% Viscous 15 Ml (Xylocaine Vi (02/17/23 01:00) Antacid Suspension (Mylanta Suspension (02/17/23 01:00) Ondansetron Injection (Zofran Injectio (02/17/23 03:30) Fentanyl Inj (Sublimaze Injection) (02/17/23 03:30) Medications Given in ED Vital Signs/I&O 02/16/23 22:23 Temp 36.4 Pulse 67 Resp 16 B/P (MAP) 110/73 (85) Blood Pressure Mean: 85 Progress Progress Note : Progress Note Patient was interviewed and examined. Labs were obtained including CBC, CMP, Lipase, UA, and CRP. All were reviewed in their entirety. There was mild anemia noted, but labs were otherwise unremarkable as interpreted by me. Due to the bounding aorta with tenderness locally appreciated on exam, CTA of the abdomen and pelvis was obtained. CT was viewed by me. Aorta demonstrated not aneurysm, dissection, or rupture on my interpretation. [facility] read was also reviewed and concurred. 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 Patient was initially treated with Fentanyl for pain, a 1L bolus of LR for hydration and renal prophylaxis, and Zofran for nausea. GI cocktail was given and provided temporary relief of pain. She was later treated wit another dose of Fentanyl for further pain control. See discharge instructions for further discussion. Diagnostic Imaging Diagonstic Imaging: CT Plain Films/CT/US/NM/MRI: abdomen, pelvis Comments [facility] report reviewed. Mild celiac trunk stenosis noted. No severe stenosis or occlusion noted. Otherwise, there were no serious CT findings requiring immediate attention. Departure Impression Primary Impression: Epigastric pain Additional Impression: Nausea Disposition: 01 HOME, SELF-CARE Condition: Improved Departure-Patient Inst. Decision time for Depature: 03:27 Referrals: KAREN PHAM MD (PCP/Family) Primary Care Physician Patient Instructions: Abdominal Pain, Adult ED, Acid Reflux and Gastroesophageal Reflux Disease in Adults, Gastritis (DC) Add. Discharge Instructions: Continue taking Protonix as prescribed. Add Carafate (sucralfate) as prescribed. Take 30 minutes before eating or drinking at meals and again before bedtime. Either chew or dissolved into a small quantity of water to make a slurry. Follow-up with Dr. Clemons within the next few weeks. Review CT results and labs from your ER visit. Use Zofran (ondansetron) as prescribed for nausea or vomiting. Avoid the following: Eating large meals, eating close to bedtime, caffeine, carbonation, chocolate, citrus fruits and juices, tomato products, mints, spicy foods, fatty/greasy foods, NSAID medications such as ibuprofen or naproxen, or anything else you know irritates your stomach. You may take Tylenol (acetaminophen) up to 1000 mg every 6 hours as needed for pain. Return to care if you have worsening of symptoms despite following these instructions. Expect gradual improvement of your pain over the next 1 to 2 weeks. All discharge instructions reviewed with patient and/or family. Voiced unde rstanding. Scripts Sucralfate (Carafate) 1 Gram Tablet 1 GM PO QID, #120 TAB Take 30 minutes before meals and bedtime. Chew or dissolved into a small amount of water to make a slurry. Prov: MARIOLA WHITTINGTON MD 02/17/23 Ondansetron (Ondansetron Odt) 4 Mg Tab.rapdis 4 MG SL Q4H PRN for NAUSEA/VOMITING, #10 TAB Prov: MARIOLA WHITTINGTON MD 02/17/23 MARIOLA WHITTINGTON MD Feb 17, 2023 03:31
--- NOTE | 2023-02-17 07:51 | Diagnostic Imaging Report ---
PROCEDURE: CT Angio Abdomen/Pelvis with. TECHNIQUE: Multiple contiguous axial images were obtained through the abdomen and pelvis after the uneventful bolus administration of intravenous contrast. Sagittal and coronal MIP reconstructions with then performed. All CT scans use one or more of the following dose optimizing techniques: automated exposure control, MA and/or KvP adjustment based on patient size and exam type or iterative reconstruction. INDICATION: Abdominal pain and pulsatile mass CTA of the abdomen and pelvis is performed after bolus intravenous administration of iodinated contrast. 3-D reformatted images are produced. 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 This is not appreciably changed. The abdominal aorta is of normal caliber. No aneurysm or dissection is identified. There may be mild focal stenosis at the origin of the celiac trunk. Superior mesenteric artery and renal arteries are widely patent. Contour irregularity of the right kidney is likely due to scarring. The right main renal artery is smaller in caliber. Inferior mesenteric arteries also patent. Iliofemoral vessels are unremarkable without evidence of change. Unopacified bladder is unremarkable. No focal hepatic, pancreatic, adrenal gland or splenic abnormality identified. Unopacified bladder is also unremarkable. No focal inflammation or organized fluid collection is seen. There is mild L5-S1 degenerative disc disease. 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 Otherwise, no great vessel abnormality or adverse change is detected. Dictated by: Dictated on workstation # [id number]
== END 2023-02-17 03:50 | disposition home or self-care (01) ==
LOC: EDUNIT# 22:08 → ER 22:09
DX: R10.13 Epigastric pain (principal); R11.0 Nausea; D64.9 Anemia, unspecified; Z90.49 Acquired absence of other specified parts of digestive tract; Z28.310 Unvaccinated for COVID-19
CPT/HCPCS: 36415; 74174; 80053; 81000; 83690; 85025; 86141